=== PATIENT | male | born 1980 | race Caucasian/White ===

== ENCOUNTER 2021-11-12 10:18 | Inpatient (IN) ==
[2021-11-12 10:54] LABS: Bilirubin,Urine Negative (Negative); Blood,Urine Negative (Negative); Clarity,Urine Clear (Clear); Color,Urine Light-Yellow (Yellow); Glucose,Urine (UA) >=1000 mg/dL (Normal); Ketones,Urine Negative (Negative); Leukocyte Esterase,Urine Negative (Negative); Mucus,Urine Few per lpf (None-Few); Nitrite,Urine Negative (Negative); PH,Urine 5.5 pH Units (5.0-8.0); Protein,Urine Negative (Neg-Trace); RBC,Urine 0-3 per hpf (0-3); Specific Gravity,Urine > 1.030 (1.010-1.025); Urobilinogen,Urine Normal (Normal); WBC,Urine 0-3 per hpf (0-3)
[2021-11-12 11:10] LABS: Basophils # 0.2 K/mcL (0.0-0.2); Eosinophils # 0.3 K/mcL (0.0-0.6); Eosinophils % 2.2 %; Hematocrit 51.6 % (37.5-50.1); Immature Granulocytes % 0.7 % (0-4); Lymphocytes # 4.4 K/mcL (0.6-4.6); Lymphocytes % 29.1 %; Mean Corpuscular HGB Conc 32.9 g/dL (31.6-35.5); Mean Corpuscular Hemoglobin 27.8 pg (28.0-33.3); Mean Corpuscular Volume 84.3 fL (83.0-100.0); Mean Platelet Volume 10.3 fL (9.4-12.4); Monocytes # 0.8 K/mcL (0.0-1.3); Monocytes % 5.5 %; Neutrophils # 9.4 K/mcL (1.6-8.9); Platelet Count 301 K/mcL (140-400); Red Blood Count 6.12 M/mcL (4.19-5.50); Red Cell Distribution Width 12.8 % (11.5-14.5); Segmented Neutrophils % 61.5 %; White Blood Count 15.2 K/mcL (4.3-11.1)
[2021-11-12 11:10] LABS: Amphetamine Screen,Urine Negative ng/mL (Cutoff=1000); Barbiturate Screen,Urine Negative ng/mL (Cutoff=200); Benzodiazepines Screen,Urine Negative ng/mL (Cutoff=200); Cannabinoid Screen,Urine Negative ng/mL (Cutoff = 50); Cocaine Screen,Urine Negative ng/mL (Cutoff= 300); Opiate Screen,Urine Negative ng/mL (Cutoff=300); Phencyclidine Screen,Urine Negative ng/mL (Cutoff=25)
[2021-11-12] MEDS: Nicotine 21 MG PATCH.TD24 TD SCH (11:14)
[2021-11-12 11:23] LABS: Estimated Average Glucose 214 mg/dl; Hemoglobin A1C 9.1 %
[2021-11-12 11:29] LABS: Acetaminophen < 10 mcg/mL (10-20); BUN/Creatinine Ratio 15 (6-26); Blood Urea Nitrogen 12 mg/dL (6-20); Calcium 9.3 mg/dL (8.6-10.3); Carbon Dioxide 24 mEq/L (23-29); Chloride 101 mEq/L (98-107); Chol/HDL Ratio 6.2 (0-4.9); Cholesterol 187 mg/dL (< 200); Ethanol < 10 mg/dL (Less than 10); Glucose 363 mg/dL (70-105); HDL Cholesterol 30 mg/dL (40-59); LDL Cholesterol,Calculated 78 mg/dL (< 100); Osmolality,Calculated 290 (280-300); Salicylate < 2.5 mg/dL (15.0-30.0); Sodium 133 mEq/L (136-145); Triglycerides 395 mg/dL (< 150); eGFR For African Americans > 60 (> 60); eGFR For Non-African Americans > 60 (> 60)
[2021-11-12] MEDS ORDERED: Insulin Regular, Human 100 UNIT/ML SUBQ ONE (11:40)
[2021-11-12] MEDS ORDERED: Mag Hydrox/Al Hydrox/Simeth 30 ML UDC PO PRN (14:23)
[2021-11-12] MEDS ORDERED: MOM Conc 10 ML UD.LIQ PO PRN (14:23)
[2021-11-12] MEDS ORDERED: *HR* LORazepam 2 MG/ML VIAL IM PRN (14:23)
[2021-11-12] MEDS ORDERED: *HR* LORazepam 1 MG TABLET PO PRN (14:23)
[2021-11-12] MEDS ORDERED: Haloperidol Lactate 5 MG/ML VIAL IM PRN (14:23)
[2021-11-12] MEDS ORDERED: haloperidoL 5 MG TABLET PO PRN (14:23)
[2021-11-12 14:28] LABS: Influenza A PCR Negative (Negative); Influenza B PCR Negative (Negative); Resp. Syncytial Virus PCR Negative (Negative)
[2021-11-12] MEDS ORDERED: Dextrose Gel 15 GM/37.5 ML TUBE PO PRN ×2 (14:30)
[2021-11-12 14:36] LABS: SARS-CoV-2 by PCR (In House) Negative (Negative)
[2021-11-12] MEDS: *HR* Metformin 500 MG TABLET PO SCH (16:42)
[2021-11-12] MEDS: Insulin LISPRO 300 UNITS/3 ML VIAL SUBQ SCH ×2 (16:43→20:53)
[2021-11-12] MEDS: Gabapentin 400 MG CAPSULE PO SCH (20:52)
[2021-11-12] MEDS: traZODone 50 MG TABLET PO PRN ×2 (20:52→23:24)
[2021-11-12] MEDS: hydrOXYzine pamoate 25 MG CAPSULE PO PRN (20:52)
[2021-11-12] MEDS: Acetaminophen 325 MG TABLET PO PRN (23:24)
[2021-11-13] MEDS: *HR* Metformin 500 MG TABLET PO SCH ×2 (08:14→17:06)
[2021-11-13] MEDS: Gabapentin 400 MG CAPSULE PO SCH ×3 (08:16→20:16)
[2021-11-13] MEDS: Nicotine 21 MG PATCH.TD24 TD SCH (08:16)
[2021-11-13] MEDS: lisinopriL 10 MG TABLET PO SCH (08:16)
[2021-11-13] MEDS: Insulin LISPRO 300 UNITS/3 ML VIAL SUBQ SCH ×4 (08:27→20:16)
[2021-11-13] MEDS: hydrOXYzine pamoate 25 MG CAPSULE PO PRN ×2 (13:33→20:16)
[2021-11-13] MEDS: Acetaminophen 325 MG TABLET PO PRN (13:34)
[2021-11-13] MEDS: traZODone 50 MG TABLET PO PRN (20:16)
[2021-11-14] MEDS: Acetaminophen 325 MG TABLET PO PRN ×2 (05:10→15:07)
[2021-11-14] MEDS: Insulin LISPRO 300 UNITS/3 ML VIAL SUBQ SCH ×4 (08:21→20:55)
[2021-11-14] MEDS: Nicotine 21 MG PATCH.TD24 TD SCH (08:22)
[2021-11-14] MEDS: *HR* Metformin 500 MG TABLET PO SCH ×2 (08:23→16:07)
[2021-11-14] MEDS: lisinopriL 10 MG TABLET PO SCH (08:23)
[2021-11-14] MEDS: Gabapentin 400 MG CAPSULE PO SCH ×3 (08:23→20:52)
[2021-11-14] MEDS: hydrOXYzine pamoate 25 MG CAPSULE PO PRN ×2 (10:55→16:05)
[2021-11-14] MEDS: traZODone 50 MG TABLET PO PRN (20:52)
[2021-11-14] MEDS: Nicotine 2 MG GUM BC PRN (20:53)
[2021-11-15] MEDS: Gabapentin 300 MG CAPSULE PO SCH ×3 (09:14→20:42)
[2021-11-15] MEDS: lisinopriL 10 MG TABLET PO SCH (09:15)
[2021-11-15] MEDS: *HR* Metformin 500 MG TABLET PO SCH ×2 (09:15→16:37)
[2021-11-15] MEDS: Acetaminophen 325 MG TABLET PO PRN ×2 (09:15→16:17)
[2021-11-15] MEDS: Nicotine 2 MG GUM BC PRN ×4 (09:20→21:15)
[2021-11-15] MEDS: Insulin LISPRO 300 UNITS/3 ML VIAL SUBQ SCH ×4 (12:52→21:46)
[2021-11-15] MEDS: hydrOXYzine pamoate 25 MG CAPSULE PO PRN ×2 (14:41→20:42)
[2021-11-15] MEDS: traZODone 50 MG TABLET PO PRN (20:42)
[2021-11-16] MEDS: Insulin LISPRO 300 UNITS/3 ML VIAL SUBQ SCH ×4 (08:54→20:53)
[2021-11-16] MEDS: lisinopriL 10 MG TABLET PO SCH (08:55)
[2021-11-16] MEDS: *HR* Metformin 500 MG TABLET PO SCH ×2 (08:55→16:50)
[2021-11-16] MEDS: Gabapentin 300 MG CAPSULE PO SCH ×4 (08:55→21:02)
[2021-11-16] MEDS: Acetaminophen 325 MG TABLET PO PRN ×3 (08:58→21:47)
[2021-11-16] MEDS: hydrOXYzine pamoate 25 MG CAPSULE PO PRN ×3 (08:58→20:56)
[2021-11-16] MEDS: Nicotine 21 MG PATCH.TD24 TD SCH (12:03)
[2021-11-16] MEDS: traZODone 50 MG TABLET PO PRN (20:56)
[2021-11-17] MEDS: Nicotine 21 MG PATCH.TD24 TD SCH (07:55)
[2021-11-17] MEDS: lisinopriL 10 MG TABLET PO SCH (07:56)
[2021-11-17] MEDS: Gabapentin 300 MG CAPSULE PO SCH ×3 (07:56→20:49)
[2021-11-17] MEDS: *HR* Metformin 500 MG TABLET PO SCH ×2 (07:56→16:31)
[2021-11-17] MEDS: Insulin LISPRO 300 UNITS/3 ML VIAL SUBQ SCH ×4 (07:57→21:55)
[2021-11-17] MEDS: Acetaminophen 325 MG TABLET PO PRN ×3 (08:00→20:48)
[2021-11-17] MEDS: hydrOXYzine pamoate 25 MG CAPSULE PO PRN ×3 (08:00→20:49)
[2021-11-17] MEDS: traZODone 50 MG TABLET PO PRN (20:50)
[2021-11-18] MEDS: Insulin LISPRO 300 UNITS/3 ML VIAL SUBQ SCH ×4 (08:07→20:31)
[2021-11-18] MEDS: *HR* Metformin 500 MG TABLET PO SCH ×2 (08:34→16:19)
[2021-11-18] MEDS: Acetaminophen 325 MG TABLET PO PRN ×2 (08:34→14:51)
[2021-11-18] MEDS: lisinopriL 10 MG TABLET PO SCH (08:34)
[2021-11-18] MEDS: Gabapentin 300 MG CAPSULE PO SCH ×3 (08:34→20:43)
[2021-11-18] MEDS: hydrOXYzine pamoate 25 MG CAPSULE PO PRN ×2 (08:34→16:19)
[2021-11-18] MEDS: Nicotine 21 MG PATCH.TD24 TD SCH (08:35)
[2021-11-18] MEDS: traZODone 50 MG TABLET PO PRN (20:43)
[2021-11-19] MEDS: traZODone 50 MG TABLET PO PRN (02:05)
[2021-11-19] MEDS: hydrOXYzine pamoate 25 MG CAPSULE PO PRN (02:05)
[2021-11-19] MEDS: Insulin LISPRO 300 UNITS/3 ML VIAL SUBQ SCH ×2 (08:34→12:23)
[2021-11-19] MEDS: *HR* Metformin 500 MG TABLET PO SCH (09:01)
[2021-11-19] MEDS: Gabapentin 300 MG CAPSULE PO SCH ×2 (09:01→14:43)
[2021-11-19] MEDS: Nicotine 21 MG PATCH.TD24 TD SCH (09:02)
[2021-11-19] MEDS: lisinopriL 10 MG TABLET PO SCH (09:02)
[2021-11-19 09:49] VITALS: BP 119/82; PULSE 103; TEMP 98.9; O2SAT 96
== END 2021-11-19 16:00 | disposition home or self-care (01) | DRG 751 ==
LOC: EMEROOARM 10:18 → 1ANU 15:33
PROVIDERS: ADMIT Psychiatry & Neurology Psychiatry; ATTEND Psychiatry & Neurology Psychiatry